=== PATIENT | female | born 1965 | race Caucasian/White ===

== ENCOUNTER 2017-11-19 06:56 | Outpatient (CLI) | payer BC | END 2017-11-19 06:57 | disposition home or self-care (01) | LOC: BICULT 06:56 | PROVIDERS: ATTEND Surgery | DX: N63.10 Unspecified lump in the right breast, unspecified quadrant (principal) | CPT/HCPCS: 77066; G0279 ==

== ENCOUNTER 2018-02-09 15:35 | Outpatient (CLI) | payer BC ==
--- NOTE | 2018-02-09 17:08 | RAD ---
LUMBAR SPINE FOUR VIEWS: 02/09/18 HISTORY: 52-year-old female with history of low back pain for 14 months without history of injury. Exam includes flexion and extension lateral views. The lower lumbar and sacral spine are underexposed on the extension lateral view. No evidence of abnormal translation between flexion and extension. Mi ld spondylosis. No acute fracture. IMPRESSION: Mild spondylosis. No abnormal translation between flexion and extension. POS: [facility]
== END 2018-02-09 15:36 | disposition home or self-care (01) ==
LOC: TBSIIMAG 15:35
PROVIDERS: ATTEND Neurological Surgery
DX: M54.5 Low back pain (principal); M47.896 Other spondylosis, lumbar region
CPT/HCPCS: 72110

== ENCOUNTER 2018-08-24 15:32 | Outpatient (CLI) | payer BC ==
--- NOTE | 2018-08-24 19:15 | MRI ---
MRI LUMBAR SPINE 08/24/18 HISTORY: Back pain for two years. Multiplanar and multisequence noncontrast enhanced MRI images of lumbar spine obtained. RADIOGRAPHIC FINDINGS: For the purposes of this dictation, the last freely mobile vertebral body will be considered to be L5 vertebral body. All other vertebral bodies numbered according to this. T12-L1: Unremarkable. L1-2: There is some mild disc desiccation. No significant degree of central stenosis or neural kimberly inal narrowing is seen. L2-3: Mild disc desiccation is seen. Mild facet hypertrophy is seen. A small amount of fluid seen in the L2-3 facet joints. No significant degree of central or neural foraminal narrowing is seen. There is right sided L2-3-4 foraminal annular fissure. L3-4: There is some mild disc desiccation. There is a mild broad based disc bulge with bilateral face t and ligamentum flavum hypertrophy. this results in mild central spinal stenosis. The neural foramen are patent. L4-5: There is some mild disc desiccation. There is a broad based disc bulge. There is bilateral face t and ligamentum flavum hypertrophy. This results in mild central spinal stenosis. The neural foramen are patent. L5-S1: Disc desiccation is seen. There is a broad based disc bulge with bilateral facet and ligamentu m flavum hypertrophy. No significant degree of central spinal stenosis seen. The neural foramen demon strate moderate left neural foraminal narrowing. The right neural foramen is patent. There does appea r to be some Modic end plate changes in the inferior end plate of L5 and superior end plate of S1 (Mo dic type I changes). POS: [facility]
== END 2018-08-24 15:33 | disposition home or self-care (01) ==
LOC: TBSIIMAG 15:32
PROVIDERS: ATTEND Neurological Surgery
DX: M54.16 Radiculopathy, lumbar region (principal)
CPT/HCPCS: 72148

== ENCOUNTER 2018-12-06 15:15 | Outpatient (CLI) | payer BC | END 2018-12-06 15:16 | disposition home or self-care (01) | LOC: BICMAMMO 15:15 | PROVIDERS: ATTEND Internal Medicine | DX: Z12.31 Encounter for screening mammogram for malignant neoplasm of breast (principal); N63.10 Unspecified lump in the right breast, unspecified quadrant; N63.20 Unspecified lump in the left breast, unspecified quadrant; Z80.3 Family history of malignant neoplasm of breast | CPT/HCPCS: 77063; 77067 ==